=== PATIENT | female | born 1985 | race Caucasian/White ===

== ENCOUNTER 2018-12-04 09:36 | Emergency (ER) | payer OTHER ==
[~2018-12-04] VITALS: Ht 154.9 cm; Wt 59.0 kg
[2018-12-04] MEDS ORDERED: MET5 GT (09:51)
[2018-12-04] MEDS ORDERED: CLONAZEPAM 1MG TABLET PO ONE (10:45)
[2018-12-04] MEDS ORDERED: IBUPROFEN 600MG TABLET PO ONE (10:45)
[2018-12-04 11:22] VITALS: BP 111/65
== END 2018-12-04 11:26 | disposition home or self-care (01) ==
LOC: ER 09:36
DX: F11.23 Opioid dependence with withdrawal (principal); F12.10 Cannabis abuse, uncomplicated; Z98.890 Other specified postprocedural states; Z88.8 Allergy status to other drugs, medicaments and biological substances
CPT/HCPCS: 81025; 99283; Z7610

== ENCOUNTER 2018-12-18 07:35 | Emergency (ER) | payer OTHER ==
[~2018-12-18] VITALS: Ht 154.9 cm; Wt 59.0 kg
[~2018-12-18 07:35] MED LIST: MET5 GT
[2018-12-18 07:40] VITALS: BP 99/62
== END 2018-12-18 09:15 | disposition home or self-care (01) ==
LOC: ER 07:35
DX: L08.9 Local infection of the skin and subcutaneous tissue, unspecified (principal); F17.200 Nicotine dependence, unspecified, uncomplicated; Z87.39 Personal history of other diseases of the musculoskeletal system and connective tissue; Z98.890 Other specified postprocedural states; Z88.8 Allergy status to other drugs, medicaments and biological substances
CPT/HCPCS: 99281

== ENCOUNTER 2019-04-03 08:45 | Emergency (ER) | payer OTHER ==
[~2019-04-03] VITALS: Ht 154.9 cm; Wt 57.0 kg
[2019-04-03 11:09] VITALS: BP 97/61
== END 2019-04-03 14:17 | disposition home or self-care (01) ==
LOC: ER 08:45
DX: S93.402A Sprain of unspecified ligament of left ankle, initial encounter (principal); W18.39XA Other fall on same level, initial encounter; Y93.89 Activity, other specified; Y92.89 Other specified places as the place of occurrence of the external cause
CPT/HCPCS: 29515; 73610; 73650; 99283

== ENCOUNTER 2020-02-11 09:55 | Emergency (ER) | payer OTHER ==
[~2020-02-11] VITALS: Ht 154.9 cm; Wt 64.0 kg
[2020-02-11] MEDS ORDERED: LIDOCAINE HCL/PF 1% 10 MG/ML 5ML VIAL IJ ONE (10:30)
[2020-02-11] MEDS ORDERED: BACITRACIN ZINC OINT UDPKT TOP ONE (10:30)
[2020-02-11] MEDS ORDERED: IBUPROFEN 600MG TABLET PO ONE (10:30)
[2020-02-11 12:11] VITALS: BP 118/73
== END 2020-02-11 12:13 | disposition home or self-care (01) ==
LOC: ER 09:55
DX: L02.416 Cutaneous abscess of left lower limb (principal); L02.415 Cutaneous abscess of right lower limb; Z88.8 Allergy status to other drugs, medicaments and biological substances; Z98.890 Other specified postprocedural states
CPT/HCPCS: 10060; 99283; J3490

== ENCOUNTER 2020-02-14 10:28 | Emergency (ER) | payer OTHER ==
[~2020-02-14] VITALS: Ht 154.9 cm; Wt 68.0 kg
[2020-02-14 10:40] VITALS: BP 108/59
== END 2020-02-14 11:01 | disposition home or self-care (01) ==
LOC: ER 10:28
DX: L02.416 Cutaneous abscess of left lower limb (principal); L02.415 Cutaneous abscess of right lower limb; Z48.00 Encounter for change or removal of nonsurgical wound dressing; Z88.8 Allergy status to other drugs, medicaments and biological substances
CPT/HCPCS: 99281